=== PATIENT | male | born 1985 | race Caucasian/White ===

== ENCOUNTER → 2023-10-02 | Outpatient (CLI) | payer OTHER ==
--- NOTE | 2023-10-02 10:29 | XR ---
3 view left knee. DATE: 10/02/2023. COMPARISON: None available. CLINICAL HISTORY: Posterior knee pain. FINDINGS: There is no fracture, subluxation, dislocation or effusion. The joint spaces are preserved. IMPRESSION: No acute osseous abnormality.
== END | disposition home or self-care (01) ==
LOC: RADXRMAIN 09:54
PROVIDERS: ATTEND Family Medicine
DX: M23.92 Unspecified internal derangement of left knee (principal)